=== PATIENT | male | born 2000 | race Caucasian/White ===

== ENCOUNTER 2022-05-08 04:44 | Emergency (ER) | payer OTHER, SELFPAY ==
[2022-05-08 04:53] VITALS: BP 146/90; PULSE 82; RESP 16; TEMP 36.6; O2SAT 100
[2022-05-08] MEDS: DACRIOSE EYE IRRIGATION 118 ML BOTTLE (05:09)
[2022-05-08] MEDS: FLUORESCEIN SOD 1 MG/STRIP (05:09)
[2022-05-08] MEDS: TETRACAINE HCL 0.5% OPHTH SOLN 4 ML BTL 1 DROP (05:10)
--- NOTE | 2022-05-08 05:15 | ED.EYEPROB ---
HPI - Eye Problem General Chief complaint: Eye Problems Stated complaint: eye swelling Time Seen by Provider: 05/08/22 04:52 History of Present Illness HPI Narrative: Patient is a 21-year-old male who presents ER with bilateral eye pain. Woke up this evening with itching and burning to bilateral eyes. They are swollen. No change in vision. No known trauma. Reports he put some Visine in his eyes yesterday evening but he does that regularly. He is having runny nose as well. No fevers or chills or sweats. No ear pain. No history of seasonal allergies. No recent exposures to new animals. No known sick contacts. Patient does not wear contact lenses. Review of Systems Review of Systems: All systems reviewed & are unremarkable except as noted in HPI and below Constitutional: Constitutional: Denies chills and Denies fever(s) Eyes: Eyes: Denies change in vision and Denies photophobia Comments: Eye itching and tearing ENT: Denies nasal congestion and Denies sore throat Comments: Rhinorrhea Respiratory: Respiratory: Denies cough and Denies dyspnea PMFSH Past Medical History Medical History (Updated 05/08/22 @ 05:33 by Modesto Vallejo MD) Healthy adult male Surgical History Surgical History (Updated 05/08/22 @ 05:33 by Modesto Vallejo MD) No history of previous surgery Exam Narrative: GENERAL: Well-appearing, well-nourished, and in no acute distress. HEAD: Normocephalic, atraumatic. EYES: PERRL and EOMI. Bilateral conjunctival injection with scleral irritation as well. No corneal abrasion with fluorescein staining bilaterally. ENT: Mucous membranes moist. NEURO: Alert and oriented x3. PSYCH: Normal mood and affect. Course Course Emergency Course: Discussed diagnosis and treatment plan. Discharge home. Vital Signs Vital signs: Vital Signs Temperature 97.8 F 05/08/22 04:53 Pulse Rate 82 05/08/22 04:53 Respiratory Rate 16 05/08/22 04:53 Blood Pressure 146/90 H 05/08/22 04:53 Pulse Oximetry 100 05/08/22 04:53 Temperature 97.8 F 05/08/22 04:53 Pulse Rate 82 05/08/22 04:53 Respiratory Rate 16 05/08/22 04:53 Blood Pressure 146/90 H 05/08/22 04:53 Pulse Oximetry 100 05/08/22 04:53 Discharge Plan Discharge Clinical Impression: Allergic conjunctivitis Patient Disposition: Home, Self-Care Condition: Stable Instructions: Conjunctivitis (ED), Cold Compress or Soak (ED) Additional Instructions: It is recommended that you go to the pharmacy or [facility] and purchase Similasan eye drops to help alleviate your symptoms. Is also recommended you take Zyrtec or Claritin daily as it is felt your symptoms are allergic in nature. Furthermore you may also use lubricating eyedrops to help with discomfort. Follow-up with an eye doctor for further treatment evaluation. Return to the ER if you cannot see, you develop fever over 100.4 ?F, you have additional concerns. Prescriptions: New Lubricating Tears 0.1-0.3 % drops 2 drp ophthalmic (eye) .as needed Qty: 15 0RF Follow-up/Referrals: UNKNOWN,DOCTOR [Primary Care Provider] -
[2022-05-08] MEDS: LORATADINE 10 MG TABLET PO (05:24)
== END 2022-05-08 05:46 | disposition home or self-care (01) ==
LOC: ANHED 05:27
PROVIDERS: Emergency Provider Emergency Medicine
DX: H10.13 Acute atopic conjunctivitis, bilateral (principal)
CPT/HCPCS: 99283; A9270